=== PATIENT | female | born 1965 | race Caucasian/White ===

== ENCOUNTER 2020-01-13 23:10 | Emergency (ER) | payer BC ==
[~2020-01-13] VITALS: Ht 167.6 cm; Wt 86.2 kg
--- NOTE | 2020-01-14 00:26 | Emergency Department Note ---
History of Present Illnes History of Present Illness Chief Complaint: Laceration History of Present Illness This is a 54 year old female arrived to the ED for a forehead laceration after sustaining a mechanical fall while intoxicated. Chief Complaint Comment 54 Y/O FEMALE PT AAOX3 PRESENTS TO THE ER C/O LACERTION ABOVE RT EYEBROW S/P FALL X45 MINUTES FINGERNAIL SCULPTURER; PT STATES SHE CONSUMED ALCOHOL, TRIPPED AND LANDED ON CONCRETE; DENIES LOC OR TAKING BLOOD THINNERS; APPROX 2 CM LACERATION NOTED; ABRASION NOTED TO BRIDGE OF NOSE; NO ACTIVE BLEEDING NOTED; NAD NOTED AT THIS TIME; ER MD IN TRIAGE FOR INITIAL EVAL. Historian: Patient Arrival Mode: Car Radiation: Reports non-radiation Severity: mild Duration (how long): hour(s) Progression: worsening Past Medical/Family History Physician Review I have reviewed the patient's past medical and family history. Any updates have been documented here. Past Medical History Recent Fever: No Clinical Suspicion of Infectio: No New/Unexplained Change in Ment: No Past Medical History: Diabetes Past Surgical History: None Review of Systems Review of Systems Constitutional: Reports no symptoms EENTM: Reports no symptoms Cardiovascular: Reports no symptoms Respiratory: Reports no symptoms Gastrointestinal: Reports no symptoms Genitourinary: Reports no symptoms Musculoskeletal: Reports no symptoms Integumentary: Reports no symptoms Neurological: Reports no symptoms Psychological: Reports no symptoms Endocrine: Reports no symptoms Hematological/Lymphatic: Reports no symptoms Physical Exam Related Data Allergies: Coded Allergies: No Known Allergies (Unverified , 01/13/20) Triage Vital Signs Vital Signs Date Time Temp Pulse Resp B/P (MAP) Pulse Ox O2 Delivery O2 Flow Rate FiO2 01/13/20 23:15 98.4 82 20 170/74 100 Room Air Physical Exam CONSTITUTIONAL Constitutional: Present well-developed, Present well-nourished HENT HENT: Present oropharynx clear/moist, Present nose normal, Present other (2-3 cm linear laceration noted over right eyebrow, bleeding controlled) HENT L/R: Present left ext ear normal, Present right ext ear normal EYES Eyes: Reports PERRL, Reports conjunctivae normal NECK Neck: Present ROM normal PULMONARY Pulmonary: Present effort normal, Present breath sounds normal CARDIOVASCULAR Cardiovascular: Present regular rhythm, Present heart sounds normal, Present capillary refill normal, Present normal rate GASTROINTESTINAL Abdominal: Present soft, Present nontender, Present bowel sounds normal GENITOURINARY Genitourinary: Present exam deferred SKIN Skin: Present warm, Present dry MUSCULOSKELETAL Musculoskeletal: Present ROM normal NEUROLOGICAL Neurological: Present alert, Present oriented x 3, Present no gross motor or s ensory deficits PSYCHOLOGICAL Psychological: Present mood/affect normal, Present judgement normal Results Imaging Imaging results reviewed: Yes Assessment & Plan Medical Decision Making MDM 54-year-old female arrived to the ED after having a fall while intoxicated. CT imaging unremarkable. Local wound care done with Dermabond. Patient return steady gait and stable for discharge home. Assessment & Plan Final Impression: (1) Closed head injury Depart Disposition: HOME, SELF-CARE Last Vital Signs Date Time Temp Pulse Resp B/P (MAP) Pulse Ox O2 Delivery O2 Flow Rate FiO2 01/13/20 23:15 98.4 82 20 170/74 100 Room Air LAURA GONZALEZ DO Jan 14, 2020 00:26
--- NOTE | 2020-01-14 00:31 | Diagnostic Imaging Report ---
History:Fall, laceration above the right eyebrow Comparison studies: None Technique: Axial images were obtained through the maxillofacial region. Coronal and sagittal images reconstructed from the axial data. Dose modulation, iterative reconstruction, and/or weight based adjustment of the mA/kV was utilized to reduce the radiation dose to as low as reasonably achievable. Intravenous contrast: None Findings: Soft tissues: A superficial right supraorbital laceration is not associated with subcutaneous emphysema or hyperdense foreign bodies. Bones: No fractures or bone abnormalities. Orbits: Globes: Intact Extra or intraconal abnormalities: None. Paranasal sinuses: Clear. Incidental bilateral Alise cells. Degenerative changes in the partially visualized cervical spine: * Mildly degenerated disks at C4-5 and C5-6. Degenerated and fused left facet at C4-C5 * Mild spinal canal stenosis at both levels due to disc osteophyte complexes. * Foraminal stenosis, mild left at C3-4 and C4-5 and bilaterally at C5-6 due to facet and uncovertebral arthrosis IMPRESSION: 1. Acute right superficial supraorbital laceration. 2. No fractures or additional acute maxillofacial abnormalities. 3. Degenerative changes in the cervical spine as described Signed by: Dr. Shiv Walker M.D. on 01/14/2020 12:27 AM
--- NOTE | 2020-01-14 00:32 | Diagnostic Imaging Report ---
History: Fall Comparison studies: None Technique: Axial images were obtained from the skull base to the vertex. Coronal and sagittal reconstructions obtained from the axial data. Dose modulation, iterative reconstruction, and/or weight based adjustment of the mA/kV was utilized to reduce the radiation dose to as low as reasonably achievable. Intravenous contrast: None Findings: Scalp/skull: No abnormalities. No fractures, blastic or lytic lesions. Extra-axial spaces: No masses. No fluid collections. Brain sulci: Appropriate for age. Ventricles: Normal in size and configuration. No hydrocephalus. Parenchyma: No abnormal densities. No masses, hemorrhage, acute or chronic cortical vascular insults. Sellar/suprasellar region: No abnormalities Craniocervical junction: Patent foramen magnum. No Chiari one malformation. Incidental findings: None. IMPRESSION: No abnormalities Signed by: Dr. Shiv Walker M.D. on 01/14/2020 12:29 AM
--- OUTSIDE RECORDS SUMMARY | 2020-01-14 00:55 | XMS REPORT | Clinical Summary ---
Author Author [facility] Address Unknown Phone Unavailable Care Team Providers Care College Athletic Director Name Role Phone Amarilis Gonsalez MD PCP [phone] Allergies Not on File Medications Not on file Active Problems Not on file Social History Date Tobacco Use Types Packs/Day Years Used Never Assessed Sex Assigned at Date Recorded Not on file Last Filed Vital Signs Not on file Plan of Treatment Health Maintenance Due Date Last Done Comments CERVICAL CANCER SCREENING 1985 COLONOSCOPY SCREENING 2014 SHINGLES VACCINES (#1) 2014 INFLUENZA VACCINE 09/15/2019 BREAST CANCER SCREENING 04/17/2020 04/17/2018 Results Not on fileafter 01/13/2019 Insurance Type Payer Benefit Subscriber ID Effective Phone Address Plan / Dates Group PPO BCBS BCBS [id number] CHOICE resent PPO/BRANDON PATEL PPO Advance Directives For more information, please contact: [phone] Patient Account Installer Explanation Type Date Recorded Advance Directives, Living Will and Medical Power of Single Stroke Preformer
--- OUTSIDE RECORDS SUMMARY | 2020-01-14 00:55 | XMS REPORT | Continuity of Care Document ---
Author Author [facility] t Organization [facility] Address [address] [place] [address] Phone Unavailable Care Team Providers Care Chief Console Operator Name Role Phone Wallace MOORE, Paris Olmos PCP [phone] Ysabel GONZALEZ Attphys Unavailable Problems This patient has no known problems. Allergies, Adverse Reactions, Alerts This patient has no known allergies or adverse reactions. Social History Social Habit Start Date Stop Date Quantity Comments Source Sex Assigned At Anabel stowilliam [employer] Medications This patient has no known medications. Procedures This patient has no known procedures. Plan of Care Planned Activity Planned Date Details Comments Source Future Scheduled Test 2020-04-17 00:00:00 BREAST CANCER SCRE ENING [code = BREAST CANCER SCREENING] [facility] Scheduled Test 2019-09-15 00:00:00 INFLUENZA VACCINE [code = INFLUENZA VACCINE] [facility] Scheduled Test 2014 00:00:00 COLONOSCOPY SCREEN ING [code = COLONOSCOPY SCREENING] [facility] Scheduled Test 2014 00:00:00 SHINGLES VACCINES (#1) [code = SHINGLES VACCINES (#1)] [facility] Scheduled Test 1985 00:00:00 Screening for jenaro gnant neoplasm of cervix (procedure) [code = 431554025] [facility] Results Test Description Test Time Test Comments Results Result Comments Source CT BRAIN WO 2020-01-14 00:27:00 [facility] : 1965 Sex: F [facility] [address] [address] Patient Name: DI EVANGELISTA MR #: [id number] : 1965 Age/Sex: 54/F Req #: [id number] Adm Physician: Ordered by: LAURA GONZALEZ DO Report #: [id number] Location: ER Room/Bed: Procedure: [id number] CT/CT BRAIN WO Exam Date: Exam Time: REPORT STATUS: Signed History: Fall Comparison studies: None Technique: Axial images were obtained from the skull base to the vertex. Coronal and sagittal reconstructions obtained from the axial data. Dose modulation, iterative reconstruction, and/or weight based adjustment of the mA/kV was utilized to reduce the radiation dose to as low as reasonably achievable. Intravenous contrast: None Findings: Scalp/skull: No abnormalities. No fractures, blastic or lytic lesions. Extra-axial spaces: No masses. No fluid collections. Brain sulci: Appropriate for age. Ventricles: Normal in size and configuration. No hydrocephalus. Parenchyma: No abnormal densities. No masses, hemorrhage, acute or chronic cortical vascular insults. Sellar/suprasellar region: No abnormalities Craniocervical junction: Patent foramen magnum. No Chiari one malformation. Incidental findings: None. IMPRESSION: No abnormalities Signed by: Dr. Shiv Walker M.D. on 01/14/2020 12:29 AM Dictated By: MOE WALKER MD, MD Transcribed By: GAUTAM on 01/14/2028 COPY TO: LAURA GONZALEZ DO CT MAXIO FAC/PARANAS WO 2020-01-14 00:22:00 [facility] : 1965 Sex: F [place] [id number] Patient Name: DI EVANGELISTA MR #: [id number] : 1965 Age/Sex: 54/F Req #: [id number] [facility] Physician: Ordered by: LAURA GONZALEZ DO Report #: [id number] Location: Room/Bed: Procedure: [id number] CT/CT MAXIO FAC/PARANAS WO Exam Date: Exam Time: REPORT STATUS: Signed History:Fall, laceration above the right eyeb row Comparison studies: None Technique: Axial images were obtained through the maxillofacial region. Coronal and sagittal images reconstructed from the axial data. Dose modulation, iterative reconstruction, and/or weight based adjustment of the mA/kV was utilized to reduce the radiation dose to as low as reasonably achievable. Intravenous contrast: None Findings: Soft tissues: A superficial right supraorbital laceration is not associated with subcutaneous emphysema or hyperdense foreign bodies. Bones: No fractures or bone abnormalities. Orbits: Globes: Intact Extra or intraconal abnormalities: None. Paranasal sinuses: Clear. Incidental bilateral Alise cells. Degenerative changes in the partially visualized cervical spine: * Mildly degenerated disks at C4-5 and C5-6. Degenerated and fused left facet at C4-C5 * Mild spinal canal stenosis at both levels due to disc osteophyte complexes. * Foraminal stenosis, mild left at C3-4 and C4-5 and bilaterally at C5-6 due to facet and uncovertebral arthrosis IMPRESSION: 1. Acute right superficial supraorbital laceration. 2. No fractures or additional acute maxillofacial abnormalities. 3. Degenerative changes in the cervical spine as described Signed by: Dr. Shiv Walker M.D. on 01/14/2020 12:27 AM Dictated By: SHIV WALKER MD, MD Transcribed By: GAUTAM on 01/14/2026 COPY TO: LAURA GONZALEZ DO
== END 2020-01-14 00:55 | disposition home or self-care (01) ==
LOC: ER 23:20
DX: S01.81XA Laceration without foreign body of other part of head, initial encounter (principal); W01.0XXA Fall on same level from slipping, tripping and stumbling without subsequent striking against object, initial encounter; Y93.01 Activity, walking, marching and hiking; E11.9 Type 2 diabetes mellitus without complications
CPT/HCPCS: 70450; 70486; 99283